=== PATIENT | female | born 1935 | race Caucasian/White ===

== ENCOUNTER 2021-02-02 17:17 | Outpatient (CLI) | payer MEDICARE, OTHER | END 2021-02-02 17:18 | disposition home or self-care (01) | LOC: COV 17:17 | PROVIDERS: ATTEND Family Medicine | DX: Z20.822 Contact with and (suspected) exposure to COVID-19 (principal) ==

== ENCOUNTER 2021-02-20 08:52 | Outpatient (CLI) | payer MEDICARE, OTHER ==
[2021-02-20 11:44] LABS: CALCIUM 9.3 mg/dL (8.5-10.3); CREATININE 0.9 mg/dL (0.4-1.0); POTASSIUM 4.4 mmol/L (3.5-5.0)
== END 2021-02-20 08:53 | disposition home or self-care (01) ==
LOC: LAB.N 08:52
PROVIDERS: ATTEND Urology Female Pelvic Medicine and Reconstructive Surgery
DX: R35.1 Nocturia (principal)
CPT/HCPCS: 36415; 80048

== ENCOUNTER 2022-01-16 08:00 | Outpatient (CLI) | payer MEDICARE, OTHER | END 2022-01-16 23:59 | disposition home or self-care (01) | LOC: LAB.N 08:00 | PROVIDERS: ATTEND Nurse Practitioner | DX: R30.0 Dysuria (principal) | CPT/HCPCS: 87077; 87086; 87181 ==

== ENCOUNTER 2022-02-19 08:00 | Outpatient (CLI) | payer MEDICARE, OTHER | END 2022-02-19 23:59 | disposition home or self-care (01) | LOC: LAB.N 08:00 | PROVIDERS: ATTEND Registered Nurse | DX: N39.0 Urinary tract infection, site not specified (principal) | CPT/HCPCS: 87086; 87181 ==

== ENCOUNTER 2022-02-28 10:18 | Outpatient (CLI) | payer MEDICARE, OTHER | END 2022-02-28 10:19 | disposition home or self-care (01) | LOC: LAB.N 10:18 | PROVIDERS: ATTEND Registered Nurse | DX: N39.0 Urinary tract infection, site not specified (principal) | CPT/HCPCS: 87086; 87181 ==

== ENCOUNTER 2022-12-31 09:58 | Outpatient (CLI) | payer MEDICARE, OTHER ==
[2022-12-31 19:16] LABS: BASOPHILS % (AUTO) 0.6 %; EOSINOPHILS # (AUTO) 0.2 10^3/uL (0.0-0.7); EOSINOPHILS % (AUTO) 2.5 %; HCT - HEMATOCRIT 37.9 % (37.0-47.0); HGB - HEMOGLOBIN 12.1 g/dL (12.0-16.0); LYMPHOCYTES # (AUTO) 1.5 10^3/uL (1.5-3.5); LYMPHOCYTES % (AUTO) 22.3 %; MEAN CORPUSCULAR HEMOGLOBIN 32.3 pg (27.0-31.0); MEAN CORPUSCULAR HGB CONC 31.9 g/dL (32.0-36.0); MEAN CORPUSCULAR VOLUME 101.1 fL (81.0-99.0); MEAN PLATELET VOLUME 9.7 fL (7.9-10.8); MONOCYTES # (AUTO) 0.7 10^3/uL (0.0-1.0); MONOCYTES % (AUTO) 10.5 %; NEUTROPHILS # (AUTO) 4.3 10^3/uL (1.5-6.6); NEUTROPHILS % (AUTO) 63.8 %; PLT - PLATELET COUNT 303 10^3/uL (130-450); RED BLOOD COUNT 3.75 10^6/uL (4.20-5.40); RED CELL DISTRIBUTION WIDTH 15.1 % (12.0-15.0); WHITE BLOOD COUNT 6.8 x10^3/uL (4.8-10.8)
[2022-12-31 19:30] LABS: ALBUMIN 4.1 g/dL (3.2-5.5); ALBUMIN/GLOBULIN RATIO 1.4 (1.0-2.2); ALKALINE PHOSPHATASE 41 IU/L (42-121); ALT ALANINE AMINOTRANSFERASE 39 IU/L (10-60); AST ASPARTATE AMINOTRANSFERASE 32 IU/L (10-42); BILIRUBIN,TOTAL 0.6 mg/dL (0.2-1.0); BUN - BLOOD UREA NITROGEN 20 mg/dL (6-20); CALCIUM 8.4 mg/dL (8.5-10.3); CARBON DIOXIDE - CO2 28 mmol/L (21-32); CHLORIDE 103 mmol/L (101-111); CHOL/HDL RATIO 1.8 (<4.4); CHOLESTEROL 174 mg/dL; CK- CREATINE KINASE 204 IU/L (22-269); GFR - MDRD 53 (>89); GLUCOSE 88 mg/dL (70-100); HDL CHOLESTEROL 98 mg/dL; INR 0.9 (0.8-1.2); LDL CHOLESTEROL,CALCULATED 58 mg/dL; LDL/HDL RATIO 0.6 (<4.4); POTASSIUM 4.1 mmol/L (3.5-5.0); PT - PROTHROMBIN TIME 9.9 secs (9.9-12.6); SODIUM 138 mmol/L (135-145); TOTAL PROTEIN 7.1 g/dL (6.7-8.2); TRIGLYCERIDES 91 mg/dL; URIC ACID 6.3 mg/dL (2.6-7.2); VLDL CHOLESTEROL 18 mg/dL
[2022-12-31 19:40] LABS: CRP - C-REACTIVE PROTEIN < 1.0 mg/dL (0-1.0)
[2022-12-31 20:13] LABS: T3 UPTAKE 38.7 % (32.0-48.4)
[2022-12-31 20:14] LABS: T4 (THYROXINE) 7.01 ug/dL (6.09-12.23)
[2022-12-31 20:15] LABS: THYROID STIMULATING HORMONE 1.36 uIU/mL (0.34-5.60)
[2022-12-31 20:17] LABS: FREE T4 (FREE THYROXINE) 0.94 ng/dL (0.58-1.64)
[2022-12-31 20:26] LABS: FOLATE 15.15 ng/mL (5.90 - >24.8)
[2022-12-31 21:49] LABS: RHEUMATOID FACTOR NEGATIVE (Negative)
[2023-01-02 03:10] LABS: HBsAG SCREEN Negative (Negative); HCV AB Non Reactive (Non Reactive); HEPATITIS A TOTAL AB Positive (Negative)
[2023-01-02 06:11] LABS: COMPLEMENT C3 113 mg/dL (82-167); COMPLEMENT C4 40 mg/dL (12-38)
[2023-01-02 19:07] LABS: ANTI-DNA (DS) AB QN 2 IU/mL (0-9); CENTROMERE B ANTIBODIES <0.2 AI (0.0-0.9); CHROMATIN ANTIBODIES <0.2 AI (0.0-0.9); JO-1 AB <0.2 AI (0.0-0.9); RIBOSOMAL P ANTIBODIES <0.2 AI (0.0-0.9); RNP ANTIBODIES <0.2 AI (0.0-0.9); SCLERODERMA-70 ANTIBODIES <0.2 AI (0.0-0.9); SJOGREN'S ANTI-SS-A <0.2 AI (0.0-0.9); SJOGREN'S ANTI-SS-B <0.2 AI (0.0-0.9); SMITH ANTIBODIES <0.2 AI (0.0-0.9); SMITH/RNP ANTIBODIES <0.2 AI (0.0-0.9)
[2023-01-03 09:10] LABS: ANGIOTENSIN-CONVERTING ENZYME 27 U/L (14-82)
[2023-01-03 15:08] LABS: A/G RATIO 1.2 (0.7-1.7); ALBUMIN 3.8 g/dL (2.9-4.4); ALPHA-1-GLOBULIN 0.2 g/dL (0.0-0.4); ALPHA-2-GLOBULIN 0.9 g/dL (0.4-1.0); BETA GLOBULIN 1.1 g/dL (0.7-1.3); GAMMA GLOBULIN 1.1 g/dL (0.4-1.8); GLOBULIN, TOTAL 3.3 g/dL (2.2-3.9); PROTEIN TOTAL 7.1 g/dL (6.0-8.5)
[2023-01-03 18:07] LABS: ANTINUCLEAR ANTIBODIES IFA Negative (.)
[2023-01-10 18:07] LABS: CYCLIC CITRULLINATED PEP IGG/A 4 units (0-19)
[2023-01-11 15:09] LABS: IMMUNOGLOBULIN E (IGE) 160 IU/mL (6-495)
== END 2022-12-31 09:59 | disposition home or self-care (01) ==
LOC: LAB.N 09:58
DX: M15.4 Erosive (osteo)arthritis (principal); Z79.899 Other long term (current) drug therapy; E55.9 Vitamin D deficiency, unspecified
CPT/HCPCS: 36415; 80053; 80061; 81374; 81599; 82164; 82306; 82310; 82550; 82607; 82746; 82785; 83516; 83721; 83970; 84155; 84165; 84436; 84439; 84443; 84479; 84550; 85025; 85610; 85613; 85651; 85732; 86038; 86060; 86140; 86147; 86160; 86162; 86200; 86225; 86235; 86376; 86430; 86480; 86635; 86704; 86708; 86803; 87340

== ENCOUNTER 2023-01-26 08:00 | Outpatient (CLI) | payer MEDICARE, OTHER | END 2023-01-26 23:59 | disposition home or self-care (01) | LOC: LAB.N 08:00 | PROVIDERS: ATTEND Nurse Practitioner | DX: N39.0 Urinary tract infection, site not specified (principal) | CPT/HCPCS: 87086; 87181 ==

== ENCOUNTER 2023-02-09 08:00 | Outpatient (CLI) | payer MEDICARE, OTHER | END 2023-02-09 23:59 | disposition home or self-care (01) | LOC: LAB 08:00 | PROVIDERS: ATTEND Emergency Medicine | DX: N32.89 Other specified disorders of bladder (principal) | CPT/HCPCS: 87086; 87181 ==

== ENCOUNTER 2023-02-20 07:45 | Outpatient (CLI) | payer MEDICARE, OTHER | END 2023-02-20 08:00 | disposition home or self-care (01) | LOC: LAB.N 07:45 | PROVIDERS: ATTEND Registered Nurse | DX: R30.0 Dysuria (principal) | CPT/HCPCS: 87086 ==

== ENCOUNTER 2023-02-22 07:13 | Outpatient (CLI) | payer MEDICARE, OTHER | END 2023-02-22 07:14 | disposition home or self-care (01) | LOC: LAB.N 07:13 | PROVIDERS: ATTEND Registered Nurse | DX: R30.0 Dysuria (principal); N32.89 Other specified disorders of bladder | CPT/HCPCS: 87086; 87181 ==

== ENCOUNTER 2023-03-12 07:12 | Outpatient (CLI) | payer MEDICARE, OTHER ==
[2023-03-12 13:03] LABS: ALBUMIN 4.3 g/dL (3.2-5.5)
[2023-03-12 13:06] LABS: ALBUMIN/GLOBULIN RATIO 1.4 (1.0-2.2); BILIRUBIN,TOTAL 0.4 mg/dL (0.2-1.0); CALCIUM 9.5 mg/dL (8.5-10.3); CREATININE 1.1 mg/dL (0.6-1.3); POTASSIUM 5.3 mmol/L (3.5-4.5); TOTAL PROTEIN 7.3 g/dL (6.4-8.9)
== END 2023-03-12 07:13 | disposition home or self-care (01) ==
LOC: LAB.N 07:12
DX: M81.0 Age-related osteoporosis without current pathological fracture (principal); E83.51 Hypocalcemia
CPT/HCPCS: 36415; 80053

== ENCOUNTER 2023-12-13 09:30 | Outpatient (CLI) | payer MEDICARE, OTHER | END 2023-12-13 09:45 | disposition home or self-care (01) | LOC: LAB.N 09:30 | PROVIDERS: ATTEND Physician Assistant Medical | DX: N39.0 Urinary tract infection, site not specified (principal) | CPT/HCPCS: 87077; 87086; 87181 ==

== ENCOUNTER 2023-12-30 08:00 | Outpatient (CLI) | payer MEDICARE, OTHER | END 2023-12-30 23:59 | disposition home or self-care (01) | LOC: LAB.N 08:00 | PROVIDERS: ATTEND Physician Assistant Medical | DX: N39.0 Urinary tract infection, site not specified (principal) | CPT/HCPCS: 87086 ==

== ENCOUNTER 2024-02-03 11:15 | Outpatient (CLI) | payer MEDICARE, OTHER | END 2024-02-03 11:30 | disposition home or self-care (01) | LOC: LAB.N 11:15 | PROVIDERS: ATTEND Physician Assistant | DX: N39.0 Urinary tract infection, site not specified (principal) | CPT/HCPCS: 87077; 87086; 87181 ==

== ENCOUNTER 2024-02-19 08:00 | Outpatient (CLI) | payer MEDICARE, OTHER | END 2024-02-19 23:59 | disposition home or self-care (01) | LOC: LAB.N 08:00 | PROVIDERS: ATTEND Physician Assistant Medical | DX: N39.0 Urinary tract infection, site not specified (principal) | CPT/HCPCS: 87086 ==